=== PATIENT | male | born 1940 | race Caucasian/White ===

== ENCOUNTER 2020-10-02 12:37 | Outpatient (CLI) | payer MEDICARE, OTHER, SELFPAY ==
--- NOTE | 2020-10-02 12:59 | FL_ITS ---
WS: [id number] FLUOROSCOPIC GUIDED RIGHT GLENOHUMERAL INJECTION FLUOROSCOPY TIME 0.8 MINUTES INDICATION: Right shoulder pain. Recent fall with triceps muscle tear. TECHNIQUE: The procedure including risks, benefits, and complications were discussed with the patient who agreed to proceed. Using sterile technique, patient was prepped and draped in the usual sterile fashion. After 1% lidocaine, using fluoroscopic guidance, a 25-gauge needle was advanced into the right glenoh umeral joint. Intra-articular location was confirmed with 3 cc contrast Omnipaque 240. Subsequently, 4 cc of a 50/50 mixture containing preservative-free 1% Xylocaine and 0.5% Ropivacaine was administer ed. Then, 40 mg triamcinolone was administered in a separate syringe. No immediate applications. Preprocedure pain score 8/10 Postprocedure pain score 8/10 FL/FL guided injection [id number] IMPRESSION: Uncomplicated fluoroscopic guided right glenohumeral injection.
[2020-10-02] MEDS: iohexol 240 mg/mL 50 mL Btl INTRA-ARTI (14:08)
== END 2020-10-02 12:38 | disposition home or self-care (01) ==
PROVIDERS: PCP Family Medicine; Visit Provider Physical Medicine & Rehabilitation
DX: M67.912 Unspecified disorder of synovium and tendon, left shoulder (principal); M67.911 Unspecified disorder of synovium and tendon, right shoulder
CPT/HCPCS: 20610; 77002; J2795; J3301; Q9966

== ENCOUNTER 2020-10-04 12:25 | Outpatient (CLI) | payer MEDICARE, OTHER, SELFPAY ==
--- NOTE | 2020-10-04 | FL_ITS ---
WS: [id number] FLUOROSCOPIC GUIDED LEFT GLENOHUMERAL JOINT INJECTION. INDICATION: Left shoulder pain FLUOROSCOPY TIME 0.7min TECHNIQUE: The procedure including risks, benefits, and complications were discussed with the patient who agreed to proceed. Using sterile technique, patient was prepped and draped in the usual sterile fashion. After 1% lidocaine, using fluoroscopic guidance, a 25-gauge needle was advanced into the LEF T glenohumeral joint. Intra-articular location was confirmed with 3 cc contrast Omnipaque 240. Subseq uently, 4 cc of a 50/50 mixture containing preservative-free 1% Xylocaine and 0.5% Ropivacaine was ad ministered. Then, 40 mg triamcinolone was administered in a separate syringe. No immediate applicatio [place]. FL/[id number] IMPRESSION: Uncomplicated therapeutic LEFT glenohumeral joint injection.
[2020-10-04] MEDS: iohexol 240 mg/mL 50 mL Btl INTRA-ARTI (14:54)
== END 2020-10-04 12:26 | disposition home or self-care (01) ==
LOC: RADWPI 12:32
PROVIDERS: PCP Family Medicine; Visit Provider Physical Medicine & Rehabilitation
DX: M25.512 Pain in left shoulder (principal)
CPT/HCPCS: 20610; 77002; J2795; J3301; Q9966

== ENCOUNTER 2021-01-08 10:19 | Outpatient (CLI) | payer MEDICARE, OTHER, SELFPAY ==
--- NOTE | 2021-01-08 | FL_ITS ---
WS: [id number] FLUOROSCOPIC GUIDED LEFT GLENOHUMERAL INJECTION Fluoroscopy time 0.6 minutes INDICATION: Rotator cuff disorder. Chronic left shoulder pain. TECHNIQUE: The procedure including risks, benefits, and complications were discussed with the patient who agreed to proceed. Using sterile technique, patient was prepped and draped in the usual sterile fashion. After 1% lidocaine, using fluoroscopic guidance, a 25-gauge needle was advanced into the left glenohu meral joint. Intra-articular location was confirmed with 3 cc contrast Omnipaque 240. Subsequently, 4 cc of a 50/50 mixture containing preservative-free 1% Xylocaine and 0.5% Ropivacaine was administere d. Then, 40 mg triamcinolone was administered in a separate syringe. No immediate complications. FL/FL [place] j [id number] IMPRESSION: Uncomplicated fluoroscopic guided left glenohumeral injection Preprocedure pain score 8/10 Postprocedure pain score 7/10
--- NOTE | 2021-01-08 | FL_ITS ---
WS: [id number] FLUOROSCOPIC GUIDED RIGHT GLENOHUMERAL INJECTION Fluoroscopy time 0.4 minutes INDICATION: Chronic Right shoulder pain. TECHNIQUE: The procedure including risks, benefits, and complications were discussed with the patient who agreed to proceed. Using sterile technique, patient was prepped and draped in the usual sterile fashion. After 1% lidocaine, using fluoroscopic guidance, a 25-gauge needle was advanced into the right glenoh umeral joint. Intra-articular location was confirmed with 3 cc contrast Omnipaque 240. Subsequently, 4 cc of a 50/50 mixture containing preservative-free 1% Xylocaine and 0.5% Ropivacaine was administer ed. Then, 40 mg triamcinolone was administered in a separate syringe. No immediate complications. FL/[place] [id number] IMPRESSION: Uncomplicated fluoroscopic-guided right glenohumeral injection Preprocedure pain score 8/10 Postprocedure pain score 7/10
--- NOTE | 2021-01-08 10:40 | FL_ITS ---
WS: [id number] FLUOROSCOPIC GUIDED RIGHT GLENOHUMERAL INJECTION Fluoroscopy time 0.4 minutes INDICATION: Chronic Right shoulder pain. TECHNIQUE: The procedure including risks, benefits, and complications were discussed with the patient who agreed to proceed. Using sterile technique, patient was prepped and draped in the usual sterile fashion. After 1% lidocaine, using fluoroscopic guidance, a 25-gauge needle was advanced into the right glenoh umeral joint. Intra-articular location was confirmed with 3 cc contrast Omnipaque 240. Subsequently, 4 cc of a 50/50 mixture containing preservative-free 1% Xylocaine and 0.5% Ropivacaine was administer ed. Then, 40 mg triamcinolone was administered in a separate syringe. No immediate complications.
--- NOTE | 2021-01-08 10:40 | FL_ITS ---
WS: [id number] FLUOROSCOPIC GUIDED LEFT GLENOHUMERAL INJECTION Fluoroscopy time 0.6 minutes INDICATION: Rotator cuff disorder. Chronic left shoulder pain. TECHNIQUE: The procedure including risks, benefits, and complications were discussed with the patient who agreed to proceed. Using sterile technique, patient was prepped and draped in the usual sterile fashion. After 1% lidocaine, using fluoroscopic guidance, a 25-gauge needle was advanced into the left glenohu meral joint. Intra-articular location was confirmed with 3 cc contrast Omnipaque 240. Subsequently, 4 cc of a 50/50 mixture containing preservative-free 1% Xylocaine and 0.5% Ropivacaine was administere d. Then, 40 mg triamcinolone was administered in a separate syringe. No immediate complications.
[2021-01-08] MEDS: iohexol 240 mg/mL 50 mL Btl INTRA-ARTI ×2 (12:07→12:09)
== END 2021-01-08 10:20 | disposition home or self-care (01) ==
PROVIDERS: PCP Family Medicine; Visit Provider Physical Medicine & Rehabilitation
DX: M67.912 Unspecified disorder of synovium and tendon, left shoulder (principal); M67.911 Unspecified disorder of synovium and tendon, right shoulder
CPT/HCPCS: 20610; 77002; J2795; J3301; Q9966